=== PATIENT | female | born 1980 | race Caucasian/White ===

== ENCOUNTER 2020-09-23 09:44 | Emergency (ER) | payer OTHER ==
[~2020-09-23] VITALS: Ht 165.1 cm; Wt 56.2 kg
[2020-09-23] MEDS ORDERED: IV NORMAL SALINE 1,000ML 1,000 ML IV ONE (10:15)
[2020-09-23 10:20] LABS: BASO % 0 % (0-3); EOS # 0.1 x10^3/uL (0.0-0.7); EOS % 2 % (0-3); HEMATOCRIT 44.6 % (36.0-47.0); HEMOGLOBIN 14.9 g/dL (12.0-15.5); LYMPH # 1.9 x10^3/uL (1.0-4.8); LYMPH % 33 % (24-48); MEAN CORPUSCULAR HEMOGLOBIN 31 pg (25-35); MEAN CORPUSCULAR HGB CONC 33 g/dL (31-37); MEAN CORPUSCULAR VOLUME 93 fL (79-100); MONO # 0.4 x10^3/uL (0.0-1.1); MONO % 8 % (0-9); NEUT # 3.2 x10^3uL (1.8-7.7); NEUT % 57 % (31-73); PLATELET COUNT 257 x10^3/uL (140-400); RED CELL DISTRIBUTION WIDTH 12.7 % (11.5-14.5); WHITE BLOOD COUNT 5.7 x10^3/uL (4.0-11.0)
--- NOTE | 2020-09-23 10:21 | RAD ---
AP portable chest radiograph 09/23/2020 Clinical History: Chest pain. An AP erect portable digital radiograph of the chest was obtained. The cardiac and mediastinal silhouettes are within normal limits in size and configuration. No pulmon benita infiltrate is seen. No pleural effusion or pneumothorax is noted. Minimal S-shaped curvature of t he thoracolumbar spine is seen. IMPRESSION: No acute abnormality is seen. Electronically signed by: Felix Kimbrough MD (09/23/2020 10:18 AM) [id number]
--- NOTE | 2020-09-23 10:24 | PHYS DOC ---
Past History Past Medical History: No Pertinent History Past Surgical History: No Surgical History Alcohol Use: Occasionally General Adult EDM: Chief Complaint: CHEST PAIN HPI: HPI: Patient is a 40-year-old female who was very healthy, she is not on any medication at home presented to ER for evaluation due to chest pain and heart palpitation off and on for a week. Patient had no cardiac risk factors. Patient is not a smoker, she has no family history of heart problem, she has no family history of blood clot disorder. Patient denies any recent travel or operation. Patient is not on any control medication. Patient wake up every morning at 3 AM, working out routinely, run every day. She denies any cough or fever, no exposure to anybody who had coronavirus. Patient admitted of drinking coffee every day. This morning she fell like her heart was racing, feeling dizzy, she has some chest pressure. Patient has some numbness and tingling sensation around her mouth and on her fingers. She felt like she might pass out but she did not. Patient denies any headache. When her came home patient told him about was going on so he decided to take her here for evaluation. Patient denies any urinary symptom. Patient said when she was standing at home today her blood pressure was low. Patient says she drinks a lot of water daily. Review of Systems: Review of Systems: Constitutional: Denies fever or chills Eyes: Denies change in visual acuity HENT: Denies nasal congestion or sore throat Respiratory: Denies cough or shortness of breath Cardiovascular: Positive for chest pain heart palpitation. GI: Denies abdominal pain, nausea, vomiting, bloody stools or diarrhea : Denies dysuria Musculoskeletal: Denies back pain or joint pain Integument: Denies rash Neurologic: Denies headache, focal weakness or sensory changes Endocrine: Denies polyuria or polydipsia Lymphatic: Denies swollen glands Psychiatric: Denies depression or anxiety Current Medications: Current Meds: Current Medications Medications (Trade) Dose Ordered Sig/Flavio Start Time Stop Time Status Last Admin Dose Admin Sodium Chloride 1,000 ml @ 1,000 mls/hr 1X ONCE 09/23/20 10:15 09/23/20 11:14 09/23/20 10:21 1,000 MLS/HR Allergies: Allergies: Allergies Coded Allergies Type Severity Reaction Last Updated Verified No Known Drug Allergies 09/23/20 No Physical Exam: PE: Constitutional: Well developed, well nourished, no acute distress, non-toxic appearance. [] HENT: Normocephalic, atraumatic, bilateral external ears normal, oropharynx moist, no oral exudates, nose normal. [] Eyes: PERRLA, EOMI, conjunctiva normal, no discharge. [] Neck: Normal range of motion, no tenderness, supple, no stridor. [] Cardiovascular: Sinus tachycardia, regular rhythm , no murmur [] Lungs & Thorax: Bilateral breath sounds clear to auscultation [] Abdomen: Bowel sounds normal, soft, no tenderness, no masses, no pulsatile masses. [] Skin: Warm, dry, no erythema, no rash. [] Back: No tenderness, no CVA tenderness. [] Extremities: No tenderness, no cyanosis, no clubbing, ROM intact, no edema. [] Neurologic: Alert and oriented X 3, normal motor function, normal sensory function, no focal deficits noted. [] Psychologic: Patient appears to be very anxious, denies suicidal ideation, denies homicidal ideation. Current Patient Data: Labs: Laboratory Tests Test 09/23/20 10:03 09/23/20 10:09 White Blood Count 5.7 x10^3/uL (4.0-11.0) Red Blood Count 4.80 x10^6/uL (3.50-5.40) Hemoglobin 14.9 g/dL (12.0-15.5) Hematocrit 44.6 % (36.0-47.0) Mean Corpuscular Volume 93 fL (79-100) Mean Corpuscular Hemoglobin 31 pg (25-35) Mean Corpuscular Hemoglobin Concent 33 g/dL (31-37) Red Cell Distribution Width 12.7 % (11.5-14.5) Platelet Count 257 x10^3/uL (140-400) Neutrophils (%) (Auto) 57 % (31-73) Lymphocytes (%) (Auto) 33 % (24-48) Monocytes (%) (Auto) 8 % (0-9) Eosinophils (%) (Auto) 2 % (0-3) Basophils (%) (Auto) 0 % (0-3) Neutrophils # (Auto) 3.2 x10^3uL (1.8-7.7) Lymphocytes # (Auto) 1.9 x10^3/uL (1.0-4.8) Monocytes # (Auto) 0.4 x10^3/uL (0.0-1.1) Eosinophils # (Auto) 0.1 x10^3/uL (0.0-0.7) Basophils # (Auto) 0.0 x10^3/uL (0.0-0.2) Glucose (Fingerstick) 121 mg/dL (70-99) H Vital Signs: Vital Signs Date Time Temp Pulse Resp B/P (MAP) Pulse Ox O2 Delivery O2 Flow Rate FiO2 09/23/20 09:50 97.7 121 16 102/43 (62) 100 Room Air EKG: EKG: EKG was done at 953, heart rate of only 111 bpm,m sinus tachycardia, no ST segment elevation Radiology/Procedures: Radiology/Procedures: [][place] [address] IMAGING REPORT Signed PATIENT: SATHISH MURRAY LACCOUNT: [id number] : 1980 LOCATION: ER AGE: 40 SEX: F EXAM STATUS: REG ER ORD. PHYSICIAN: GRISELDA MACIAS DO REASON: chest pain PROCEDURE: CHEST AP ONLY AP portable chest radiograph 09/23/2020 Clinical History: Chest pain. An AP erect portable digital radiograph of the chest was obtained. The cardiac and mediastinal silhouettes are within normal limits in size and configuration. No pulmonary infiltrate is seen. No pleural effusion or pneumothorax is noted. Minimal S-shaped curvature of the thoracolumbar spine is seen. IMPRESSION: No acute abnormality is seen. Electronically signed by: Felix Ramsey MD (09/23/2020 10:18 AM) [id number] DICTATED AND SIGNED BY: FELIX RAMSEY MD DATE: 09/23/20 1017 CC: PCP,DRAKE; GRISELDA MACIAS DO ~MTH0 0 Heart Score: HEART Score for Chest Pain: HEART Score for Chest Pain Response (Comments) Value History Slighlty/Non-Suspicious 0 ECG Normal 0 Age < 45 0 Risk Factors No Risk Factors 0 Troponin < Normal Limit 0 Total 0 Risk Factors: Risk Factors: DM, Current or recent (<one month) smoker, HTN, HLP, family history of CAD, obesity. Risk Scores: Score 0 - 3: 2.5% MACE over next 6 weeks - Discharge Home Score 4 - 6: 20.3% MACE over next 6 weeks - Admit for Clinical Observation Score 7 - 10: 72.7% MACE over next 6 weeks - Early Invasive Strategies Course & Med Decision Making: Course & Med Decision Making Pertinent Labs and Imaging studies reviewed. (See chart for details) Patient is a 40-year-old healthy female who presented to ER due to chest pain and heart palpitation off and on for a week. Work-up in the ER including EKG and lab work did not show any acute problem. Patient declined CTA of her chest at this time to evaluate for blood clot disorder. Patient was given IV fluid, she was given .5 mg of Ativan p.o. Patient was feeling much better, would like [place]ada Disclaimer: Jada Disclaimer: This electronic medical record was generated, in whole or in part, using a voice recognition dictation system. Departure Departure: Impression: Primary Impression: Chest pain Disposition: 01 DC HOME SELF CARE/HOMELESS Condition: IMPROVED Referrals: PCP,NO (PCP) follow up with your doctor next week for reevaluation Patient Instructions: Chest Pain (Nonspecific) Additional Instructions: Thank you for visiting our Emergency Department. We appreciate you trusting us with your care. If any additional problems come up don't hesitate to return to visit us. Please follow up with your primary care provider so they can plan additional care if needed and know about the problem that you had. If symptoms worsen come back to the Emergency Department. Any concerning symptoms that start such as chest pain, shortness of air, weakness or numbness on one side of the body, running high fevers or any other concerning symptoms return to the ER. GRISELDA MACIAS DO Sep 23, 2020 10:24
[2020-09-23 10:28] LABS: CALCIUM 8.3 mg/dL (8.5-10.1); CREATININE 0.8 mg/dL (0.6-1.0); GFR 79.4
[2020-09-23 10:43] LABS: ALBUMIN 4.1 g/dL (3.4-5.0); ALBUMIN/GLOBULIN RATIO 1.3 (1.0-1.7); MAGNESIUM 1.8 mg/dL (1.8-2.4); TOTAL BILIRUBIN 0.7 mg/dL (0.2-1.0); TOTAL PROTEIN 7.3 g/dL (6.4-8.2)
[2020-09-23 11:27] LABS: BACTERIA,URINE 0 /HPF (0-FEW); BILIRUBIN,URINE NEG (NEG); CLARITY,URINE CLEAR; COLOR,URINE YELLOW; GLUCOSE,URINE NEG (NEG); NITRITE,URINE NEG (NEG); RBC,URINE 0 /HPF (0-2); SQUAMOUS EPITHELIAL CELL,UR MOD /LPF; UROBILINOGEN,URINE 0.2 mg/dL (0.2 mg/dL); WBC,URINE OCC /HPF (0-4)
--- NOTE | 2020-09-23 12:06 | EKG ---
[address] [address] Test Date: 2020-09-23 Test Time: 09:50:01 Pat Name: SATHISH MURRAY Department: Room: Gender: F [employer] Electrical [employer]: [employer] : 1980 Requested By: GRISELDA MACIAS Order Number: [id number] Reading MD: Measurements Intervals [place] Rate: 111 P: 75 AL: 140 QRS: 104 QRSD: 100 T: 47 QT: 334 QTc: 458 Interpretive Statements SINUS TACHYCARDIA BIATRIAL ENLARGEMENT RIGHTWARD AXIS R-S TRANSITION ZONE IN V LEADS DISPLACED TO THE LEFT S1,S2,S3 PATTERN INCOMPLETE RIGHT BUNDLE BRANCH BLOCK ABNORMAL ECG RI6.02 No previous ECG available for comparison
[2020-09-23 12:24] LABS: U PREG PATIENT NEGATIVE (NEG)
[2020-09-23] MEDS ORDERED: LORazepam 1 MG TABLET ONE (12:26)
[2020-09-23] MEDS ORDERED: LIDO:MAALOX 1:1 20 ML SINGLE DOSE. ONE (12:26)
[2020-09-23] MEDS ORDERED: LIDO:MAALOX 1:1 20 ML SINGLE DOSE. PO ONE (12:30)
[2020-09-23] MEDS ORDERED: LORazepam 1 MG TABLET PO ONE (12:30)
[2020-09-23 13:42] VITALS: BP 124/72
[2020-09-23 13:44] LABS: FREE T4 0.96 ng/dL (0.76-1.46)
[2020-09-23 13:45] LABS: THYROID STIM HORMONE (TSH) 0.876 uIU/mL (0.358-3.740)
== END 2020-09-23 13:55 | disposition home or self-care (01) ==
LOC: ER 09:44
DX: R07.9 Chest pain, unspecified (principal); R00.2 Palpitations; R42 Dizziness and giddiness; R20.2 Paresthesia of skin
CPT/HCPCS: 36415; 71045; 80053; 81001; 81025; 82947; 83690; 83735; 83880; 84439; 84443; 84484; 85025; 87086; 87147; 93005; 96360; 99285; J7030

== ENCOUNTER → 2020-12-30 | Outpatient (CLI) | payer OTHER ==
--- NOTE | 2020-12-30 09:12 | CARD ---
MR#: [id number] Date of Study: 12/30/2020 Ordering Physician: HIMANSHU MCMILLAN, Referring Physician: HIMANSHU MCMILLAN, Tech: Renata Phipps [facility] APPROVED REPORT EXAM: Two-dimensional and M-mode echocardiogram with Doppler and color Doppler. Other Information Quality : Good INDICATION Palpitations 2D DIMENSIONS RVDd1.8 (2.9-3.5cm)Left Atrium(2D)2.3 (1.6-4.0cm) IVSd0.7 (0.7-1.1cm)Aortic Root(2D)2.7 (2.0-3.7cm) LVDd4.4 (3.9-5.9cm)LVOT Diameter1.9 (1.8-2.4cm) PWd1.0 (0.7-1.1cm)LVDs2.9 (2.5-4.0cm) FS (%) 33.9 %SV54.3 ml LVEF(%)63.0 (>50%) Aortic Valve AoV Peak Jose Cruz.121.0cm/sAoV VTI21.7cm AO Peak GR.5.9mmHgLVOT Peak Jose Cruz.113.6cm/s LVOT VTI 19.96cmAO Mean GR.3mmHg SAMIA (VMAX)2.22ng8KBA (VTI)2.61cm2 Mitral Valve MV E Durzdsbw204.4cm/sMV DECEL YBCU191gg MV A Unxvhsuy84.1cm/sE/A Ratio1.6 Pulmonary Vein S1 Dwlcxljr00.5cm/sD2 Vqtevbwi38.3cm/s LEFT VENTRICLE The left ventricle is normal size. There is normal left ventricular wall thickness. The left ventricu lar systolic function is normal. The Ejection Fraction is 55-60%. There is normal LV segmental wall m otion. The left ventricular diastolic function and filling is normal for age. RIGHT VENTRICLE The right ventricle is normal size. The right ventricular systolic function is normal. ATRIA The left atrium size is normal. The right atrium size is normal. The interatrial septum is intact wit h no evidence for an atrial septal defect or patent foramen ovale as noted on 2-D or Doppler imaging. AORTIC VALVE The aortic valve is not well visualized but appears to be functioning normally by Doppler interrogati on. Doppler and Color Flow revealed no significant aortic regurgitation. There is no significant aort ic valvular stenosis. MITRAL VALVE The mitral valve is normal in structure and function. There is no evidence of mitral valve prolapse. There is no mitral valve stenosis. Doppler and Color-flow revealed trace mitral regurgitation. TRICUSPID VALVE The tricuspid valve is normal in structure and function. Doppler and Color Flow revealed no tricuspid valve regurgitation noted. There is no tricuspid valve stenosis. PULMONIC VALVE The pulmonic valve is not well visualized. Doppler and Color Flow revealed no pulmonic valvular regur gitation. There is no pulmonic valvular stenosis. GREAT VESSELS The aortic root is normal in size. The ascending aorta is normal in size. The IVC is normal in size a nd collapses >50% with inspiration. PERICARDIAL EFFUSION There is no evidence of significant pericardial effusion. Critical Notification Critical Value: No <Conclusion> The left ventricular systolic function is normal. The Ejection Fraction is 55-60%. There is normal LV segmental wall motion. Trace mitral regurgitation. There is no evidence of significant pericardial effusion. Signed by : Ajit Stanley, Electronically Approved : 12/30/2020 09:12:34
== END ==
LOC: ECHO 07:46
PROVIDERS: ATTEND Internal Medicine Cardiovascular Disease
DX: R00.2 Palpitations (principal)
CPT/HCPCS: 93306

== ENCOUNTER 2021-05-11 13:30 | Emergency (ER) | payer OTHER ==
[~2021-05-11] VITALS: Ht 167.6 cm; Wt 55.9 kg
[2021-05-11 13:40] VITALS: BP 145/84
--- NOTE | 2021-05-11 14:37 | RAD ---
Exam Date: 05/11/2021 1:53 PM XR FOREARM_RIGHT 2 VIEWS Indication: Reason: mid radius pain / Spl. Instructions: / History: . FINDINGS/ IMPRESSION: No acute fracture or dislocation. Alignment and joint spaces are maintained. The soft tissues are w ithin normal limits. Electronically signed by: Guicho Silva MD (05/11/2021 2:34 PM) [facility]
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
== END 2021-05-11 15:00 | disposition home or self-care (01) ==
LOC: ER 13:30
DX: S59.911A Unspecified injury of right forearm, initial encounter (principal); W18.00XA Striking against unspecified object with subsequent fall, initial encounter; Y93.89 Activity, other specified; Y92.89 Other specified places as the place of occurrence of the external cause; Y99.8 Other external cause status
CPT/HCPCS: 73090; 99283